=== PATIENT | female | born 1970 ===

== ENCOUNTER 2017-08-31 08:00 | Inpatient (IN) | payer OTHER ==
[~2017-08-31] VITALS: Ht 160 cm; Wt 77.1 kg
[2017-08-31] MEDS ORDERED: MEGESTROL ACETA40 MG PO (11:44)
[2017-09-04] MEDS ORDERED: NAPROSYN125 MG/5 M PO ×2 (11:24→11:31)
[2017-09-04] MEDS ORDERED: PERCOCET 5-3251 EACH PO (11:24)
[2017-09-04] MEDS ORDERED: CIPRO500 MG PO (11:24)
== END 2017-09-04 12:09 | disposition home or self-care (01) | DRG 743 ==
LOC: ADM 08:00 → EDSTATUS 08:00 → ADM 09:15 → O/R 09-02 05:24 → OB/GYN 09-02 05:24 → O/R 09-02 07:00 → OB/GYN 09-02 12:05
PROVIDERS: Obstetrics & Gynecology; Urology
PROC: 0USG0ZZ Reposition Vagina, Open Approach (ICD-10-PCS; 2017-09-02)
PROC: 0US20ZZ Reposition Bilateral Ovaries, Open Approach (ICD-10-PCS; 2017-09-02)
PROC: 0T788DZ Dilation of Bilateral Ureters with Intraluminal Device, Via Natural or Artificial Opening Endoscopic (ICD-10-PCS; 2017-09-02)
PROC: 0UT90ZZ Resection of Uterus, Open Approach (ICD-10-PCS; principal; 2017-09-02 07:00)
PROC: 0UT70ZZ Resection of Bilateral Fallopian Tubes, Open Approach (ICD-10-PCS; 2017-09-02 07:00)
DX: D25.1 Intramural leiomyoma of uterus (principal); N92.1 Excessive and frequent menstruation with irregular cycle; I86.2 Pelvic varices; D50.8 Other iron deficiency anemias